=== PATIENT | female | born 1960 | race Caucasian/White ===

== ENCOUNTER → 2023-12-11 06:32 | Outpatient (REF) | payer OTHER, SELFPAY | LOC: MRI 3T 06:32 | PROVIDERS: ATTENDING PHYSICIAN Anesthesiology; FAMILY PHYSICIAN Internal Medicine | DX: M54.12 Radiculopathy, cervical region (principal) | CPT/HCPCS: 72141 ==

== ENCOUNTER 2025-10-19 21:58 | Emergency (ER) | payer OTHER, SELFPAY ==
[2025-10-19 22:04] VITALS: BP 162/85
[2025-10-19 22:19] LABS: Urine Character Clear (Clear)
== END 2025-10-20 01:55 ==
LOC: EMR 21:58
PROVIDERS: Emergency Medicine
DX: Z53.21 Procedure and treatment not carried out due to patient leaving prior to being seen by health care provider (principal)
CPT/HCPCS: 81003